=== PATIENT | female | born 1950 | race Caucasian/White ===

== ENCOUNTER 2018-02-17 09:30 | Emergency (ER) | payer MEDICARE ==
[~2018-02-17 09:30] MED LIST: Bacitracin Zinc 1 Packet ONE; Lidocaine 1% 20 ML MDV ONE
[2018-02-17] MEDS ORDERED: Adacel (T-DAP) 0.5 ML SYRINGE ONE (11:17)
== END 2018-02-17 11:27 | disposition home or self-care (01) ==
LOC: MADERS 09:30
DX: S61.217A Laceration without foreign body of left little finger without damage to nail, initial encounter (principal); Z79.899 Other long term (current) drug therapy; W26.0XXA Contact with knife, initial encounter
CPT/HCPCS: 12001; 90471; 90715; J2001